=== PATIENT | male | born 1965 | race Asian ===

== ENCOUNTER 2017-02-08 12:19 | Emergency (ER) | payer OTHER ==
[2017-02-08 12:53] VITALS: TEMP 98.7
[2017-02-08] MEDS ORDERED: TETANUS,DIPHTHERIA,PERTUSSIS 1 EA SYG IM ONE (13:03)
[2017-02-08] MEDS ORDERED: SULFA/TRIMETH 800/160 (DS) TAB 1 EA TAB PO ONE (13:03)
--- NOTE | 2017-02-08 13:05 | ED.PDOC ---
History of Present Illness - General Chief Complaint: Laceration Stated Complaint: Laceration of L 5th finger Time Seen by Provider: 02/08/17 12:24 Source: patient Exam Limitations: no limitations - History of Present Illness Initial Comments: the patient is a 52-year-old male presenting to the emergency room after sustaining a laceration approximately 1 cm in length to the lateral aspect of the proximal interphalangeal joint of the fifth digit of the left hand approximately one hour prior to arrival. He had initially presented to the outpatient clinic and had lidocaine injected there. Due to bleeding he was sent over here. By the time he arrived here he was hemostatic. He reports that he had no sensory loss prior to the lidocaine injection. Of course currently he has numbness distal to the laceration. He does not appear to have lacerated any tendons. After risk and benefits were explained the wound is irrigated here. 2 simple sutures of 4-0 Ethilon were used for reapproximation and a antibiotic ointment and Band-Aid were applied. Timing/Duration: 1/2 hour Severity: moderate Improving Factors: nothing Worsening Factors: nothing Associated Symptoms: denies symptoms Allergies/Adverse Reactions: Allergies NO KNOWN ALLERGY Allergy (Unverified 06/17/13 11:49) Home Medications: Ambulatory Orders NK [NK] 02/08/17 Review of Systems - Review of Systems Constitutional: States: no symptoms reported EENTM: States: no symptoms reported Respiratory: States: no symptoms reported Cardiology: States: no symptoms reported Gastrointestinal/Abdominal: States: no symptoms reported Genitourinary: States: no symptoms reported Musculoskeletal: States: no symptoms reported Skin: States: see HPI Neurological: States: no symptoms reported Endocrine: States: no symptoms reported All other Systems: No Change from Baseline Past Medical History (General) - Patient Medical History Hx Stroke: No Hx Cardiac Disorders: No Hx Congestive Heart Failure: No Hx Diabetes: No Hx Cancer: No Hx Hepatitis C: No Surgical History: no surgical history - Vaccination History Hx Tetanus, Diphtheria Vaccination: No Hx Influenza Vaccination: Yes Hx Pneumococcal Vaccination: No - Social History Hx Tobacco Use: No Hx Chewing Tobacco Use: No Hx Alcohol Use: Yes - Occas Hx Substance Use: No Hx Substance Use Treatment: No Hx Depression: No Feels Threatened In Home Enviroment: No Feels Threatened In a Relationship: No Hx Physical Abuse: No Hx Emotional Abuse: No Hx Suspected Abuse: No Family Medical History - Family History Grandparents Family History: Unknown Physical Exam - Physical Exam General Appearance: Alert, Comfortable, No apparent distress Eye Exam: bilateral normal Ears, Nose, Throat: hearing grossly normal Respiratory: no respiratory distress, no accessory muscle use Cardiovascular/Chest: normal peripheral pulses Peripheral Pulses: radial,right: 2+, radial,left: 2+ Extremity: normal range of motion, no pedal edema, normal capillary refill, other - range of motion of the fifth digit is preserved. Strength is preserved. No evidence of tendon lacerationby function or by exam Neurologic: alert, normal mood/affect, oriented x 3 Skin Exam: normal color - 1 cm laceration as above Comments: Vital Signs - 24 hr 02/08/17 12:45 Temperature 98.7 F Pulse Rate [R 85 hand] Respiratory 18 Rate Blood Pressure 132/85 [R Arm] O2 Sat by Pulse 98 Oximetry Progress - Progress Progress: 02/08/17 13:06 the patient is a 52-year-old male presenting to emergency room with a laceration to the fifth digit of the left hand. Laceration is 1 cm in length and required 2 simple 4-0 Ethilon sutures for repair. He is to keep the wound covered with Band-Aid and Neosporin. He can wash daily after 24 hours. Until then he should keep it dry. Sutures need to come out in approximately 10 days. ER warnings are given for any worsening. He did receive 1 dose of Bactrim here and a tetanus shot as well. - EKG/XRAY/CT CT Ordered: No CT Interpretation Call Back: No Departure - Departure Clinical Impression: Accidental laceration Disposition: Discharge to Home or Self Care Condition: Fair Departure Forms: ED Discharge - Pt. Copy, Patient Portal Self Enrollment Instructions: DI for Laceration Repair, DI for Laceration Repair -- Finger Diet: regular diet Activity: increase activity as tolerated Referrals: Reggie Hill MD [Primary Care Provider] - 1-2 Weeks Home Medications: Ambulatory Orders NK [NK] 02/08/17 Additional Instructions: the patient is a 52-year-old male presenting to emergency room with a laceration to the fifth digit of the left hand. Laceration is 1 cm in length and required 2 simple 4-0 Ethilon sutures for repair. He is to keep the wound covered with Band-Aid and Neosporin. He can wash daily after 24 hours. Until then he should keep it dry. Sutures need to come out in approximately 10 days. ER warnings are given for any worsening. He did receive 1 dose of Bactrim here and a tetanus shot as well.
[2017-02-08] MEDS ORDERED: NEOMYCIN-BACITRACIN-POLYMYXIN 0.9 GM UD TOP ONE (14:00)
[2017-02-08 14:20] VITALS: BP 136/74; O2SAT 99
== END 2017-02-08 14:00 | disposition home or self-care (01) ==
LOC: ER 12:19
DX: S61.217A Laceration without foreign body of left little finger without damage to nail, initial encounter (principal); Z23 Encounter for immunization; W45.8XXA Other foreign body or object entering through skin, initial encounter; Y92.9 Unspecified place or not applicable

== ENCOUNTER → 2017-07-25 | Outpatient (CLI) | payer OTHER | LOC: GMAB 10:50 | PROVIDERS: ATTEND Family Medicine | DX: Z00.00 Encounter for general adult medical examination without abnormal findings (principal) ==